=== PATIENT | female | born 1975 | race Caucasian/White ===

== ENCOUNTER → 2017-07-09 | Outpatient (CLI) | payer BC ==
[2017-07-09 16:56] LABS: Anion Gap 7 mmol/L; Blood Urea Nitrogen 10 mg/dL (7-17); Carbon Dioxide 27 mmol/L (22-30); Chloride 104 mmol/L (98-107); Glucose 101 mg/dL (74-99); Potassium 4.1 mmol/L (3.5-5.1); Sodium 138 mmol/L (137-145)
== END | disposition home or self-care (01) ==
LOC: LABPAT 16:09
PROVIDERS: ATTEND Obstetrics & Gynecology
DX: Z01.812 Encounter for preprocedural laboratory examination (principal); R10.2 Pelvic and perineal pain; N83.209 Unspecified ovarian cyst, unspecified side; N80.9 Endometriosis, unspecified
CPT/HCPCS: 80051; 82565; 82947; 84520; 87086

== ENCOUNTER 2017-07-17 05:45 | Observation (INO) | payer BC ==
[2017-07-09 14:56] VITALS: BMI 25.0
[~2017-07-17 05:45] MED LIST: DEXAMETHASONE SOD PHOSPHATE 10 MG/ML 1 ML VIAL IV ONE; HYDROmorphone 0.5 MG/0.5 ML SYRINGE IVP PRN; LIDOCAINE 1% 20 ML VIAL (10MG/ML) FOR IV START INTRADERMA PRN; ONDANSETRON 4 MG/2 ML VIAL IVP ONE; SCOPOLAMINE 1.5MG/72HR PATCH TRANSDERM ONE; ceFAZolin IN SWFI 2 GM/20 ML SYRINGE IVP ONE
[2017-07-17] MEDS: LACTATED RINGERS 1,000 ML IV SCH ×3 (07:01→22:00)
[2017-07-17] MEDS ORDERED: LIDOCAINE 1% 20 ML VIAL (10MG/ML) FOR IV START INTRADERMA ONE (07:02)
[2017-07-17] MEDS ORDERED: GLYCOPYRROLATE 0.2 MG/ML 2 ML VIAL ONE (07:29)
[2017-07-17] MEDS ORDERED: fentaNYL (PF) 50 MCG/ML 2 ML AMP ONE (07:29)
[2017-07-17] MEDS ORDERED: SUCCINYLCHOLINE CHLORIDE 100 MG/5 ML SYR IV ONE (07:29)
[2017-07-17] MEDS ORDERED: MIDAZOLAM 2 MG/2 ML VIAL ONE (07:29)
[2017-07-17] MEDS ORDERED: PROPOFOL 10 MG/ML 20 ML VIAL IV ONE (07:29)
[2017-07-17] MEDS ORDERED: ROCURONIUM BROMIDE 10 MG/ML 10 ML VIAL IV ONE (07:29)
[2017-07-17] MEDS ORDERED: NEOSTIGMINE 1 MG/ML 10 ML VIAL ONE (07:29)
[2017-07-17] MEDS ORDERED: HYDROmorphone (PF) 1 MG/ML ONE (07:29)
[2017-07-17] MEDS ORDERED: LIDOCAINE 1% INJ 10MG/ML (20 ML MDV) ONE (07:29)
[2017-07-17] MEDS ORDERED: BUPIVACAINE (PF) 0.25% 30 ML VIAL SQ ONE (08:05)
--- NOTE | 2017-07-17 09:43 | P.OP ---
Date of Procedure: 07/17/17 Preoperative Diagnosis: #1 pelvic pain #2 left ovarian cyst Postoperative Diagnosis: Same Procedure(s) Performed: Robotic-assisted laparoscopic assisted vaginal hysterectomy with bilateral salpingo-oophorectomy and cystoscopy Anesthesia: CHELSEY Surgeon: Shira Acharya Estimated Blood Loss (ml): 15 IV fluids (ml): 750 Urine output (ml): 200 Pathology: other (Cervix, uterus, bilateral tubes and ovaries) Condition: stable Disposition: PACU Operative Findings: Simple approximately 3 cm left ovarian cyst. Small uterus. Normal-appearing right ovary. No evidence of pelvic scarring or endometriosis. Description of Procedure: After the patient was met in the preoperative holding area and all questions were answered, she was taken to the operating room where anesthetic was administered without incident. She was in positioned, prepped and draped in the dorsal low lithotomy position. Rose catheter was placed in the bladder. A weighted speculum was placed in the vagina and the cervix was grasped anteriorly with single-tooth tenaculum. The uterus was sounded and with the very minimal pressure the sound clearly perforated the back of the uterus. The sound was removed and the [facility] uterine manipulator was placed. Attention was then turned to the abdominal portion. Gloves were changed. A supraumbilical skin incision was made in the anterior abdominal wall was elevated. The Veress needle was inserted and saline drop test indicated intraperitoneal placement. Initial filling pressure was 3 mm. Abdomen was insufflated to a total filling pressure of 15 mm with CO2 gas. Under direct visualization the left da Jade and left political science research assistant ports were placed. The right political science research assistant port was also placed under direct visualization. The patient was placed in steep Trendelenburg. The camera port was changed out for the da Jade camera port. The da Jade robot was then docked per protocol. She Hailey and the #2 and a monopolar shell in the #1 her arms. At the console visualization the uterus was obtained. Uterine perforation was indeed noted with the uterine manipulator however good uterine movement was still noted despite this. There was good visualization of the bilateral ureters. There is a 3-4 cm simple cystic structure on the left ovary. The right pelvic ligament was sequentially cauterized and cut. The right round ligament was sequentially cauterized and cut. The broad ligament was opened anteriorly and carried down to the level of the bladder. The left ovary was somewhat more adherence to the left pelvic sidewall. This was carefully dissected away with monopolar electrocautery well below the level of the ureter. Once the ovary was free the infundibulopelvic ligament was copiously cauterized and cut. The round ligament was sequentially cauterized and cut. The anterior leaf of the broad ligament was then entered. The bladder was dissected away from the anterior cervix sharply and with the electrocautery. There was some difficulty in manipulating the cuff secondary to the uterine perforation however good visualization of the bladder was possible. The uterine vasculature was then skeletonized bilaterally sequentially cauterized. Anterior colpotomy was then made and this was carried around the cervix and vaginal mucosa circumferentially. The uterus is then delivered into the vagina. The instruments were changed to bringing the suture device. The self locking suture was then introduced and the cuff was closed in a running locked fashion. There was no active bleeding noted along the cuff. All surgical sites were then inspected and no active bleeding was noted. Attention was then turned to the cystoscopy. The diagnostic cystoscopy cystoscope was introduced into the bladder. No suture material or blood or other abnormalities were appreciated in the bladder. Immediate and copious spill from the bilateral ureters was directly visualized. The cystoscope was then removed. The vagina was swabbed and no active bleeding was noted. Skin incisions were then closed using 4-0 Vicryl suture and dressed appropriately. Chorda percent Marcaine was infused at each incision. Patient was awoken from anesthetic without incident and transported to recovery area in stable condition. All counts reported to me as correct by the operating room staff.
[2017-07-17] MEDS: MEPERIDINE 50 MG/ML SYRINGE IVP ONE ×4 (10:35→13:01)
[2017-07-17 10:39] VITALS: RESP 16
[2017-07-17] MEDS ORDERED: diphenhydrAMINE 50 MG/ML 1 ML VIAL IVP ONE (10:43)
[2017-07-17] MEDS ORDERED: KETOROLAC 30 MG/ML 1 ML VIAL IVP ONE (11:28)
[2017-07-17] MEDS ORDERED: SODIUM CHLORIDE 0.9% 1,000 ML IV ONE ×2 (12:34)
[2017-07-17] MEDS ORDERED: ONDANSETRON 4 MG/2 ML VIAL IVP PRN (13:23)
[2017-07-17] MEDS ORDERED: Acetaminophen-Codeine 300-30mg TAB PO PRN (13:23)
[2017-07-17] MEDS ORDERED: diphenhydrAMINE 50 MG/ML 1 ML VIAL IVP PRN (13:23)
[2017-07-17] MEDS ORDERED: IBUPROFEN 600 MG TAB PO PRN (13:23)
[2017-07-17] MEDS ORDERED: SIMETHICONE 80 MG CHEWABLE PO PRN (13:23)
[2017-07-17] MEDS: SENNOSIDES-DOCUSATE SODIUM 1 EACH TAB PO SCH (13:41)
[2017-07-17] MEDS: Acetaminophen-Codeine 300-30mg TAB PO PRN ×2 (15:31→21:07)
[2017-07-17] MEDS: KETOROLAC 30 MG/ML 1 ML VIAL IVP PRN (18:28)
[2017-07-18] MEDS: KETOROLAC 30 MG/ML 1 ML VIAL IVP PRN (02:15)
[2017-07-18] MEDS: SENNOSIDES-DOCUSATE SODIUM 1 EACH TAB PO SCH ×2 (03:27→08:37)
[2017-07-18 08:06] LABS: Basophils # (A) 0.1 k/uL (0-0.2); Basophils % (A) 0 %; Eosinophils # (A) 0.3 k/uL (0-0.7); Eosinophils % (A) 2 %; HCT 35.9 % (34.0-46.0); HGB 12.4 gm/dL (11.4-16.0); Lymphocytes # (A) 4.8 k/uL (1.0-4.8); Lymphocytes % (A) 30 %; MCH 32.6 pg (25.0-35.0); MCHC 34.5 g/dL (31.0-37.0); MCV 94.6 fL (80.0-100.0); Mean Platelet Volume 7.1; Monocytes # (A) 0.6 k/uL (0-1.0); Monocytes % (A) 4 %; Neutrophils # (A) 9.8 k/uL (1.3-7.7); Neutrophils % (A) 63 %; Platelet Count 281 k/uL (150-450); RBC 3.79 m/uL (3.80-5.40); WBC 15.7 k/uL (3.8-10.6)
--- NOTE | 2017-07-18 08:16 | P.DS ---
Providers Date of admission: 07/18/17 02:50 Expected date of discharge: 07/18/17 Attending physician: Shira Acharya Primary care physician: Ila Musa - Discharge Diagnosis(es) (1) Pelvic pain Current Visit: Yes Status: Acute Hospital Course: This is a 42-year-old woman with a history of chronic pelvic pain and ovarian cysts who was admitted for definitive surgical management. She was admitted on 07/17/2017 and 1 to the operating room where she underwent a uncomplicated robotic-assisted laparoscopic assisted vaginal hysterectomy, bilateral salpingo- oophorectomy and cystoscopy. Findings at the time of surgery were significant for a simple left ovarian cyst approximately 3 cm. She'll be small uterus and no evidence of pelvic endometriosis or scarring. Please see the operative report for details. Postoperatively the patient did very well. By the evening of postoperative day 0 she was tolerating a general diet and was anteverted and voiding without difficulty. Her pain was controlled with oral pain medications. By the morning of postoperative day #1 she continued to do well however had not yet passed gas. Her abdomen was mild to moderately distended, soft and nontender. She had good bowel sounds in all 4 quadrants. She had minimal vaginal bleeding and her dressings were dry. She denies nausea or vomiting. She was therefore discharged home pending flatus and return of postop day 1 labs. Patient Condition at Discharge: Good Plan - Discharge Summary Discharge Rx Participant: Yes New Discharge Prescriptions: New Acetaminophen-Codeine 300-30mg [Tylenol w/codeine #3] 2 each PO Q6HR PRN #20 tab PRN Reason: Severe Pain Acetaminophen-Codeine 300-30mg [Tylenol w/codeine #3] 1 each PO Q4HR PRN tab PRN Reason: Moderate Pain Sennosides-Docusate Sodium [Senokot-S] 2 each PO BID PRN #30 tab PRN Reason: Constipation Estradiol [Estrace] 1 mg PO DAILY #30 tab Discharge Medication List Acetaminophen-Codeine 300-30mg [Tylenol w/codeine #3] 1 each PO Q4HR PRN tab [Rx] Acetaminophen-Codeine 300-30mg [Tylenol w/codeine #3] 2 each PO Q6HR PRN #20 tab 07/18/17 [Rx] Estradiol [Estrace] 1 mg PO DAILY #30 tab 07/18/17 [Rx] Sennosides-Docusate Sodium [Senokot-S] 2 each PO BID PRN #30 tab 07/18/17 [Rx] Follow up Appointment(s)/Referral(s): Shira Acharya MD [STAFF PHYSICIAN] - 2 Weeks Discharge Disposition: HOME SELF-CARE
[2017-07-18] MEDS: Acetaminophen-Codeine 300-30mg TAB PO PRN (08:35)
[2017-07-18 08:41] VITALS: BP 116/55; PULSE 95; TEMP 98
== END 2017-07-18 13:10 | disposition home or self-care (01) ==
LOC: OR 05:45 → 4FBP 09:38 → OR 07-18 02:50
PROVIDERS: ADMIT Obstetrics & Gynecology; ATTEND Obstetrics & Gynecology
DX: R10.2 Pelvic and perineal pain (principal); G89.29 Other chronic pain; N83.12 Corpus luteum cyst of left ovary; N72 Inflammatory disease of cervix uteri; N71.9 Inflammatory disease of uterus, unspecified; A60.00 Herpesviral infection of urogenital system, unspecified; F17.210 Nicotine dependence, cigarettes, uncomplicated; Z80.0 Family history of malignant neoplasm of digestive organs
CPT/HCPCS: 58571; S2900; 81025; 85025; 86850; 86900; 86901; 88307

== ENCOUNTER → 2018-12-06 | Outpatient (CLI) | payer BC ==
--- NOTE | 2018-12-06 16:03 | US ---
EXAMINATION TYPE: US abdomen comp/pelvis limited DATE OF EXAM: 12/06/2018 COMPARISON: none CLINICAL HISTORY: 43-year-old female R10.9 ABD PAIN. Generalized lower abdominal pain TECHNIQUE: Multiple sonographic images of the kidneys and bladder are obtained. FINDINGS: EXAM MEASUREMENTS: Liver Length: 11.7 cm Gallbladder Wall: 0.3 cm CBD: 0.3 cm Spleen: 8.3 cm Right Kidney: 11.1 x 4.7 x 5.7 cm Left Kidney: 11.0 x 5.4 x 5.0 cm Post Void Residual: 103.5 mL Pancreas: not well visualized due to midline bowel gas Liver: Overall homogeneous appearance without focal lesion. Gallbladder: A large calculus or multiple calculi fill the gallbladder lumen. No surrounding fluid o r evident wall thickening. Negative Stuart's sign. CBD: wnl Spleen: wnl Right Kidney: No hydronephrosis. Left Kidney: No hydronephrosis. Upper IVC: wnl Abd Aorta: wnl Bladder: No gross abnormality. Bilateral Jets Seen Yes Normal Post Void Residual (normal less than 50ml): No, increased at 103.5 ml IMPRESSION: 1. Cholelithiasis with a large calculus or multiple calculi filling the gallbladder lumen. 2. Suboptimal visualization of the pancreas. 3. Findings suggest urinary retention with the postvoid bladder volume of over 100 mL.
== END | disposition home or self-care (01) ==
LOC: RADUSWWP 13:05
PROVIDERS: ATTEND Family Medicine
DX: K80.20 Calculus of gallbladder without cholecystitis without obstruction (principal); R10.9 Unspecified abdominal pain
CPT/HCPCS: 76700; 76857

== ENCOUNTER → 2019-02-25 | Outpatient (CLI) | payer BC ==
[2019-02-25 23:15] LABS: C Reactive Protein 1.3 mg/dL (0.0-0.8)
[2019-02-26 00:41] LABS: Gliadin AB IgA, Deaminated NEGATIVE (NEGATIVE); Gliadin AB IgA, Unit 12.2 U/mL; Gliadin AB IgG, Deaminated NEGATIVE (NEGATIVE)
== END | disposition home or self-care (01) ==
LOC: LABWHC1 16:07
PROVIDERS: ATTEND Physician Assistant
DX: K52.9 Noninfective gastroenteritis and colitis, unspecified (principal)
CPT/HCPCS: 36415; 83516; 84443; 85652; 86140

== ENCOUNTER → 2019-04-05 | Outpatient (CLI) | payer BC ==
--- NOTE | 2019-04-05 18:56 | CT ---
EXAMINATION TYPE: CT abdomen pelvis wo/w con DATE OF EXAM: 04/05/2019 COMPARISON: None INDICATION: abdominal pain X 6 months DLP: 879.8 mGycm, Automated exposure control for dose reduction was used. CONTRAST: 100 mL of Isovue 300. Study performed with Oral Contrast TECHNIQUE: Axial images were obtained from above the diaphragm to the pubic rami in the axial plane a t 5 mm thick sections. Reconstructed images are reviewed on the computer in the coronal plane. FINDINGS: Limited CT sections are obtained the lung bases. The lung bases are clear. CT ABDOMEN: Liver: Normal Spleen: Normal Pancreas: Normal Adrenal glands: The adrenal glands are normal. Gallbladder: Multiple gallstones are present. Kidneys: No masses are evident. No hydronephrosis is present. No cysts are present. Delayed images were obtained through the kidneys, which remain unremarkable. No renal stones are identified. Aorta: Normal Inferior vena cava: Normal. CT PELVIS: Loops of bowel within the abdomen and pelvis are normal. There are loops of bowel which are incom pletely distended or lack oral contrast limiting their evaluation. Appendix: Normal as visualized. Urinary bladder: Normal. Genitourinary structures: Uterus is not identified. Adnexal regions are unremarkable. Osseous structures: No suspicious lytic or sclerotic lesions. IMPRESSIONS: 1. Cholelithiasis.
== END ==
LOC: RADCTMAIN 07:54
PROVIDERS: ATTEND Physician Assistant
DX: K80.20 Calculus of gallbladder without cholecystitis without obstruction (principal)
CPT/HCPCS: 74178; Q9967

== ENCOUNTER → 2023-02-19 | Outpatient (CLI) | payer OTHER ==
--- NOTE | 2023-02-20 22:35 | MM ---
Reason for Exam: Screening (asymptomatic). Patient History: Menarche at age 19. First Full-Term at age 19. Left ovary removed at age 41. Right ovary removed at age 41. Hysterectomy at age 41. Postmenopausal. Patient has history of breast feeding. Risk Values: Sandra 5 year model risk: 0.6%. NCI Lifetime model risk: 6.3%. Prior Study Comparison: No prior studies available for comparison. Tissue Density: The breast tissue is heterogeneously dense. This may lower the sensitivity of mammography. Findings: Analyzed By CAD. No significant mass, suspicious microcalcification, or other discrete abnormality is seen in either breast. Overall Assessment: Negative, BI-RAD 1 Management: Screening Mammogram of both breasts in 1 year. . Patient should continue monthly self-breast exams. A clinical breast exam by your physician is recommended on an annual basis. This exam should not preclude additional follow-up of suspicious palpable abnormalities. Note on Sandra scores and lifetime risk: 1. A Sandra score greater than 3% is considered moderate risk. If this is the case, consider specialist referral to assess eligibility for a risk reducing agent. 2. If overall lifetime risk for the development of breast cancer is 20% or higher, the patient may qualify for future screening with alternating mammogram and breast MRI. Electronically signed and approved by: Skip Churchill M.D. Radiologist
== END | disposition home or self-care (01) ==
LOC: RADMAMWWP 11:35
DX: Z12.31 Encounter for screening mammogram for malignant neoplasm of breast (principal); Z78.0 Asymptomatic menopausal state
CPT/HCPCS: 77067

== ENCOUNTER → 2024-04-28 | Outpatient (CLI) | payer OTHER ==
--- NOTE | 2024-04-29 09:06 | MM ---
Reason for Exam: Screening (asymptomatic). Last mammogram was performed 1 year(s) and 2 month(s) ago. Patient History: Menarche at age 19. First Full-Term at age 19. Left ovary removed at age 41. Right ovary removed at age 41. Hysterectomy at age 41. Postmenopausal. Patient has history of breast feeding. Risk Values: Sandra 5 year model risk: 0.6%. NCI Lifetime model risk: 6.1%. Prior Study Comparison: 02/19/2023 Bilateral MG screening mammo w CAD, [facility]. Tissue Density: The breasts are heterogeneously dense, which may obscure small masses. Findings: Analyzed By CAD. Right breast: There is no suspicious group of microcalcifications or new suspicious mass. Left breast: There is no suspicious group of microcalcifications or new suspicious mass. Overall Assessment: Negative, BI-RAD 1 Management: Screening Mammogram of both breasts in [address] [facility] will attempt to contact patient to return for supplemental views and ultrasound if indicated. Patient should continue monthly self-breast exams. A clinical breast exam by your physician is recommended on an annual basis. This exam should not preclude additional follow-up of suspicious palpable abnormalities. Note on Sandra scores and lifetime risk: 1. A Sandra score greater than 3% is considered moderate risk. If this is the case, consider specialist referral to assess eligibility for a risk reducing agent. 2. If overall lifetime risk for the development of breast cancer is 20% or higher, the patient may qualify for future screening with alternating mammogram and breast MRI. [facility], , 04/29/2024 9:02 AM. Electronically signed and approved by: Mendel Velez DO
== END | disposition home or self-care (01) ==
LOC: RADMAMWWP 13:47
PROVIDERS: ATTEND Family Medicine
DX: Z12.31 Encounter for screening mammogram for malignant neoplasm of breast (principal); R92.333 Mammographic heterogeneous density, bilateral breasts; Z78.0 Asymptomatic menopausal state; Z90.722 Acquired absence of ovaries, bilateral
CPT/HCPCS: 77067